=== PATIENT | male | born 1975 | race Caucasian/White ===

== ENCOUNTER 2020-03-01 13:04 | Emergency (ER) | payer OTHER ==
[~2020-03-01] VITALS: Ht 185.4 cm; Wt 113.6 kg
[2020-03-01 13:11] VITALS: BP 143/95
== END 2020-03-01 13:54 | disposition home or self-care (01) ==
LOC: ER 13:05
DX: R05 Cough (principal); R63.0 Anorexia; R43.8 Other disturbances of smell and taste; Z20.828 Contact with and (suspected) exposure to other viral communicable diseases
CPT/HCPCS: 36415; 99281; 99283